=== PATIENT | female | born 1970 | race Two or more races ===

== ENCOUNTER 2024-09-06 10:45 | Inpatient (IN) | payer OTHER ==
[~2024-09-06] VITALS: Ht 162.6 cm; Wt 57.2 kg
[2024-09-06 12:43] VITALS: BP 117/70
[2024-09-06 15:19] LABS: RH NEGATIVE
[2024-09-09] MEDS ORDERED: LITHIUM CARBON450 MG (13:34)
[2024-09-09] MEDS ORDERED: BUPROPION XL300 MG (13:34)
[2024-09-09] MEDS ORDERED: ARMOUR THYROID60 M1 (13:34)
[2024-09-09] MEDS ORDERED: LORAZEPAM0.5 MG (13:34)
[2024-09-09] MEDS ORDERED: METRONIDAZOLE/SODIUM CHLORIDE 500 MG/100 ML PIGGYBACK IV ONE (14:45)
[2024-09-09] MEDS ORDERED: POVIDONE-IODINE 118 ML BOTT TOP ONE (14:45)
[2024-09-09] MEDS ORDERED: CEFAZOLIN SODIUM 1,000 MG VIAL IV ONE (14:45)
[2024-09-09] MEDS ORDERED: KETOROLAC TROMETHAMINE 30 MG VIAL IV ONE ×3 (15:15→21:45)
[2024-09-09] MEDS ORDERED: MORPHINE SULFATE 4 MG/ML CARTRIDGE IV PRN (15:15)
[2024-09-09] MEDS ORDERED: RINGERS SOLUTION,LACTATED 1,000 ML IV SCH (15:15)
[2024-09-09] MEDS ORDERED: ONDANSETRON HCL 2 MG/ML VIAL IV PRN (15:15)
[2024-09-09] MEDS ORDERED: SIMETHICONE 125 MG CAPSULE PO SCH (17:00)
[2024-09-09] MEDS ORDERED: CEFAZOLIN SODIUM 1,000 MG VIAL IV SCH (17:00)
[2024-09-09] MEDS ORDERED: MORPHINE SULFATE 4 MG/ML VIAL IV ONE ×2 (17:00→17:30)
[2024-09-09] MEDS ORDERED: GABAPENTIN 300 MG CAPSULE PO SCH (17:00)
[2024-09-09] MEDS ORDERED: METOCLOPRAMIDE HCL 5 MG/ML VIAL IV SCH (17:00)
[2024-09-09] MEDS ORDERED: KETOROLAC TROMETHAMINE 30 MG VIAL IM SCH (18:00)
[2024-09-09] MEDS ORDERED: ACETAMINOPHEN 500 MG GEL..CAP PO SCH (18:00)
[2024-09-09 19:09] LABS: HEMOGLOBIN 11.8 g/dL (12.0-15.00); MEAN CELL VOLUME 88.9 fL (80.00-100.00); MEAN CORPUSCULAR HGB CONC 33.7 g/dl (32.0-36.0); PLATELET COUNT 207 K/uL (150-450); RED BLOOD COUNT 3.94 M/uL (4.00-6.00); RED CELL DISTRIBUTION WIDTH 14.1 % (11.5-14.5)
[2024-09-09 19:24] LABS: ALBUMIN 3.3 gm/dL (3.4-5.0); CALCIUM 8.8 mg/dL (8.5-10.1); CREATININE SERUM 0.88 mg/dL (0.55-1.02); GFR 67.22; PHOSPHOROUS 3.5 mg/dL (2.5-4.9); POTASSIUM 4.18 mEq/L (3.5-5.1)
[2024-09-09] MEDS ORDERED: FAMOTIDINE/PF 20 MG/2 ML VIAL IV PUSH SCH (21:00)
[2024-09-09 22:19] VITALS: BP 117/70
[2024-09-10 00:58] VITALS: BP 103/63; O2SAT 100
[2024-09-10] MEDS ORDERED: LEVOTHYROXINE SODIUM 25 MCG TABLET PO SCH (06:00)
[2024-09-10 06:42] LABS: HEMOGLOBIN 11.4 g/dL (12.0-15.00); MEAN CORPUSCULAR HGB CONC 34.4 g/dl (32.0-36.0); PLATELET COUNT 192 K/uL (150-450); RED BLOOD COUNT 3.67 M/uL (4.00-6.00); RED CELL DISTRIBUTION WIDTH 13.9 % (11.5-14.5)
[2024-09-10 06:43] VITALS: BP 100/65
[2024-09-10 07:29] LABS: CALCIUM 8.8 mg/dL (8.5-10.1); CREATININE SERUM 0.74 mg/dL (0.55-1.02); GFR 82.09; PHOSPHOROUS 3.4 mg/dL (2.5-4.9); POTASSIUM 4.27 mEq/L (3.5-5.1)
[2024-09-10 08:27] VITALS: BP 97/61
[2024-09-10] MEDS ORDERED: ENOXAPARIN SODIUM 40 MG/0.4 ML SYRINGE SUBCUTANEO SCH (09:00)
== END 2024-09-10 12:38 | disposition home or self-care (01) | DRG 741 ==
LOC: O/R 09-09 06:10 → SURH 09-09 10:15 → OB/GYN 09-09 18:01
PROVIDERS: ADMIT Obstetrics & Gynecology Gynecologic Oncology; ATTEND Obstetrics & Gynecology Gynecologic Oncology
PROC: 0UT54ZZ Resection of Right Fallopian Tube, Percutaneous Endoscopic Approach (ICD-10-PCS; 2024-09-09)
PROC: 07BC4ZZ Excision of Pelvis Lymphatic, Percutaneous Endoscopic Approach (ICD-10-PCS; 2024-09-09)
PROC: 0UT94ZZ Resection of Uterus, Percutaneous Endoscopic Approach (ICD-10-PCS; principal; 2024-09-09 10:15)
DX: D06.7 Carcinoma in situ of other parts of cervix (principal); D25.1 Intramural leiomyoma of uterus; Z20.822 Contact with and (suspected) exposure to COVID-19

== ENCOUNTER 2025-02-14 12:38 | Inpatient (IN) | payer OTHER ==
[~2025-02-14] VITALS: Ht 162.6 cm; Wt 55.8 kg
[~2025-02-14 12:38] MED LIST: ARMOUR THYROID60 M1; BUPROPION XL300 MG; LITHIUM CARBON450 MG; LORAZEPAM0.5 MG
[2025-02-14] MEDS ORDERED: 0.9 % SODIUM CHLORIDE 1,000 ML IV SCH ×2 (12:52→21:00)
[2025-02-14 14:17] LABS: HEMATOCRIT 36.6 % (36.0-45.00); HEMOGLOBIN 12.2 g/dL (12.0-15.00); MEAN CELL VOLUME 90.4 fL (80.00-100.00); MEAN CORPUSCULAR HEMOGLOBIN 30.2 pg (27.00-32.0); MEAN CORPUSCULAR HGB CONC 33.4 g/dl (32.0-36.0); PLATELET COUNT 221 K/uL (150-450); RED BLOOD COUNT 4.05 M/uL (4.00-6.00); RED CELL DISTRIBUTION WIDTH 13.9 % (11.5-14.5)
[2025-02-14 14:27] LABS: URINE APPEARANCE Clear; URINE BILIRRUBIN Negative (NEGATIVE); URINE COLOR Yellow; URINE GLUCOSE Negative (NEGATIVE); URINE KETONE Negative (NEGATIVE); URINE LEUKOCYTE Negative; URINE NITRATE Negative; URINE PROTEIN Negative (NEGATIVE); URINE UROBILINOGEN 0.2 E.U./dl
[2025-02-14 14:29] LABS: CALCIUM 9.3 mg/dL (8.5-10.1); CREATININE SERUM 0.81 mg/dL (0.55-1.02); GFR 73.96; POTASSIUM 4.38 mEq/L (3.5-5.1)
[2025-02-14 14:31] LABS: URINE BACTERIA 51.3 uL (0.0-1933); URINE EPITHELIAL CELLS 7.2 uL (0.0-38.8); URINE RBC 40.2 uL (0.0-20.8); URINE WBC 38.5 uL (0.0-23.2)
[2025-02-14 14:36] LABS: URINE BLOOD TRACE; URINE CAST 0.14 uL (0.0-1.40)
[2025-02-14] MEDS ORDERED: KETOROLAC TROMETHAMINE 30 MG VIAL ONE (16:09)
[2025-02-14] MEDS ORDERED: KETOROLAC TROMETHAMINE 30 MG VIAL IV ONE (16:15)
[2025-02-14] MEDS ORDERED: PIPERACILLIN/TAZOBACTAM SODIUM 3.375 GM in DEXTROSE 5 % IN WATER 100 ML IV SCH (21:02)
[2025-02-14] MEDS ORDERED: METOCLOPRAMIDE HCL 5 MG/ML VIAL IM ONE (21:15)
[2025-02-14] MEDS ORDERED: MORPHINE SULFATE 2 MG/ML CARTRIDGE IV PRN (21:15)
[2025-02-14] MEDS ORDERED: ONDANSETRON HCL 4 MG in 0.9 % SODIUM CHLORIDE 50 ML IV PRN (21:15)
[2025-02-14] MEDS ORDERED: PIPERACILLIN/TAZOBACTAM SODIUM 3.375 GM VIAL IV ONE (22:15)
[2025-02-14 23:29] LABS: INR 0.95; PARTIAL THROMBOPLASTIN TIME 27.9 SECONDS (22.0-34.0); PROTHROMBIN TIME 10.4 SECONDS (9.0-11.5)
[2025-02-15 05:28] VITALS: BP 121/84; O2SAT 100
[2025-02-15] MEDS ORDERED: PIPERACILLIN/TAZOBACTAM SODIUM 3.375 GM VIAL IV ONE (08:17)
[2025-02-15] MEDS ORDERED: FAMOTIDINE/PF 20 MG/2 ML VIAL ONE (08:17)
[2025-02-15 08:24] VITALS: BP 103/69
[2025-02-15] MEDS ORDERED: FAMOTIDINE/PF 20 MG in 0.9 % SODIUM CHLORIDE 8 ML IV PUSH SCH (09:00)
[2025-02-15] MEDS ORDERED: DIATRIZOATE MEGLUMINE, SODIUM 30 ML BOTTLE PO NR (16:00)
[2025-02-15 16:10] VITALS: BP 101/63; O2SAT 100
[2025-02-15] MEDS ORDERED: LORazepam 2 MG/ML VIAL IV SCH (21:00)
[2025-02-15 23:11] LABS: PH,URINE 5.5 (5.0-8.0); URINE APPEARANCE Clear; URINE BILIRRUBIN Negative (NEGATIVE); URINE BLOOD Negative; URINE COLOR Yellow; URINE GLUCOSE Negative (NEGATIVE); URINE KETONE 15 (NEGATIVE); URINE LEUKOCYTE Trace; URINE NITRATE Negative; URINE PROTEIN Negative (NEGATIVE); URINE UROBILINOGEN 0.2 E.U./dl
[2025-02-15 23:15] LABS: URINE BACTERIA 12.2 uL (0.0-1933); URINE EPITHELIAL CELLS 9.4 uL (0.0-38.8); URINE RBC 3.9 uL (0.0-20.8); URINE WBC 11.5 uL (0.0-23.2)
[2025-02-16 01:13] VITALS: BP 100/62; O2SAT 97
[2025-02-16 08:36] VITALS: BP 100/59; O2SAT 99
[2025-02-16 09:48] LABS: HEMATOCRIT 35.8 % (36.0-45.00); HEMOGLOBIN 11.7 g/dL (12.0-15.00); MEAN CELL VOLUME 91.7 fL (80.00-100.00); MEAN CORPUSCULAR HGB CONC 32.7 g/dl (32.0-36.0); PLATELET COUNT 194 K/uL (150-450); RED CELL DISTRIBUTION WIDTH 14.5 % (11.5-14.5)
[2025-02-16 10:52] LABS: ALBUMIN 3.1 gm/dL (3.4-5.0); BILIRUBIN TOTAL 0.83 mg/dL (0.3-1.2); CREATININE SERUM 0.76 mg/dL (0.55-1.02); GFR 79.61; GLOBULINA 2.9 G/DL (2.4-3.5); PHOSPHOROUS 3.1 mg/dL (2.5-4.9); POTASSIUM 4.43 mEq/L (3.5-5.1)
[2025-02-16 10:58] LABS: C-REACTIVE PROTEIN 12.5 MG/DL (0.00-0.29)
[2025-02-16] MEDS ORDERED: BUPROPION HCL 150 MG TABLET.SA PO NR (12:45)
[2025-02-16] MEDS ORDERED: LITHIUM CARBONATE 150 MG CAPSULE PO SCH (17:00)
[2025-02-16 17:58] VITALS: BP 111/71
[2025-02-16] MEDS ORDERED: LORazepam 1 MG TABLET PO SCH (21:00)
[2025-02-16] MEDS ORDERED: LITHIUM CARBONATE 300 MG CAPSULE PO SCH (21:00)
[2025-02-17 01:54] VITALS: BP 91/55
[2025-02-17] MEDS ORDERED: BUPROPION HCL 150 MG TABLET.SA PO SCH (09:00)
[2025-02-17 09:03] VITALS: BP 92/54; O2SAT 99
[2025-02-17] MEDS ORDERED: MINERAL OIL 133 ML ENEMA RECTAL STA (13:26)
[2025-02-17 16:00] VITALS: BP 115/74; O2SAT 100
[2025-02-17] MEDS ORDERED: MINERAL OIL 133 ML ENEMA RECTAL SCH (21:00)
[2025-02-18 00:59] VITALS: BP 101/58
[2025-02-18] MEDS ORDERED: FAMOTIDINE/PF 20 MG/2 ML VIAL ONE (08:40)
[2025-02-18] MEDS ORDERED: PIPERACILLIN/TAZOBACTAM SODIUM 3.375 GM VIAL IV ONE (08:40)
[2025-02-18 08:52] VITALS: BP 90/65
== END 2025-02-18 14:48 | disposition home or self-care (01) | DRG 390 ==
LOC: ER 12:39 → MEDI 21:36
PROVIDERS: Emergency Medicine; General Practice; Internal Medicine Infectious Disease; ADMIT Internal Medicine; ATTEND Internal Medicine
PROC: BW40ZZZ Ultrasonography of Abdomen (ICD-10-PCS; principal; 2025-02-14)
PROC: BW4GZZZ Ultrasonography of Pelvic Region (ICD-10-PCS; 2025-02-14)
PROC: BW21ZZZ Computerized Tomography (CT Scan) of Abdomen and Pelvis (ICD-10-PCS; 2025-02-14)
PROC: 0DH68UZ Insertion of Feeding Device into Stomach, Via Natural or Artificial Opening Endoscopic (ICD-10-PCS; 2025-02-14)
PROC: BW21ZZZ Computerized Tomography (CT Scan) of Abdomen and Pelvis (ICD-10-PCS; 2025-02-15)
DX: K56.699 Other intestinal obstruction unspecified as to partial versus complete obstruction (principal); K52.9 Noninfective gastroenteritis and colitis, unspecified; D06.7 Carcinoma in situ of other parts of cervix; F32.A Depression, unspecified; E03.8 Other specified hypothyroidism; N20.0 Calculus of kidney